=== PATIENT | female | born 1935 | race Caucasian/White ===

== ENCOUNTER 2019-11-30 07:46 | Outpatient (CLI) | payer OTHER, SELFPAY ==
--- NOTE | ~2019-11-30 | DEXA_ITS ---
Bone Density Report Name: Deysi Kaplan Age: 84 Sex: Female Ethnicity: White Date of : 1935 Indication: osteopenia; hysterectomy; Referring Provider: EUFEMIA DE LEON Study: Bone densitometry was performed. Exam Date: November 30, 2019 Accession number: [id number] There is hypertrophic degenerative change of the lumbar spine, which results in higher than expected spine bone mineral density measurements. These spine BMD and T score and Z score measurements are not reflective of the patient's true general bone mineral density. Bone Density: Region BMD T-score Z-score Classification AP Spine (L1, L3) 1.253 2.2 4.9 Normal Femoral Neck (Left) 0.665 -1.7 0.8 Osteopenia Total Hip (Left) 0.820 -1.0 1.2 Normal Total Hip Bilateral Avg 0.815 -1.1 1.2 Osteopenia Femoral Neck (Right) 0.659 -1.7 0.7 Osteopenia Total Hip (Right) 0.809 -1.1 1.1 Osteopenia World Health Organization criteria for BMD impression classify patients as: Normal (T-score at or above -1.0), Osteopenia (T-score between -1.0 and -2.5), or Osteoporosis (T-score at or below -2.5). 10-year Fracture Risk(1): Major Osteoporotic Fracture 14% Hip Fracture 4.0% Reported Risk Factors: [place] (), Neck BMD=0.659, BMI=27.1 (1) FRAX(R) Version 3.08. Fracture probability calculated for an untreated patient. Fracture probability may be lower if the patient has received treatment. Previous Exams: Region Exam Age BMD T-score BMD Change BMD Change Date g/cm2 vs Baseline vs Previous AP Spine(L1, L3) 11/30/2019 84 1.253 2.2 0.074(6.3%)* 0.074(6.3%)* 09/01/2017 82 1.178 1.5 Total Hip(Left) 11/30/2019 84 0.820 -1.0 0.031(4.0%)* 0.006(0.7%) 09/01/2017 82 0.814 -1.0 0.025(3.2%) 0.025(3.2%) 07/26/2014 78 0.789 -1.3 Total Hip(Right) 11/30/2019 84 0.809 -1.1 0.040(5.3%)* 0.024(3.0%) 09/01/2017 82 0.786 -1.3 0.017(2.2%) 0.017(2.2%) 07/26/2014 78 0.769 -1.4 *Denotes significance at 95% confidence level, LSC for AP Spine = 0.022 g/cm2, LSC for Total Hip = 0.027 g/cm2 Clinical Information Provided by Patient: Has used the following medications: Vitamin D Has the following medical conditions: Hysterectomy Patient maximum height was 62 Menopause Age: 45 No regular weight bearing exercise Drinks caffeinated beverages Onset of menses at age 15 Number of children 3 Impression: The patient has low bone mass, based on the Left Fem
== END 2019-11-30 07:47 | disposition home or self-care (01) ==
LOC: ANHIMG 07:49
PROVIDERS: PCP Emergency Medicine; Visit Provider Emergency Medicine
DX: Z78.0 Asymptomatic menopausal state (principal); M85.852 Other specified disorders of bone density and structure, left thigh; M85.851 Other specified disorders of bone density and structure, right thigh
CPT/HCPCS: 77080

== ENCOUNTER 2021-04-29 13:27 | Outpatient (CLI) | payer OTHER, SELFPAY ==
--- NOTE | ~2021-04-29 | CT_ITS ---
EXAMINATION: CT abdomen pelvis wo con DATE: 04/29/2021 13:51 INDICATION: Parastomal hernia check TECHNIQUE: Computed tomography (CT) of the abdomen and pelvis was performed without intravenous contr ast. Automated exposure control and iterative reconstruction technique were employed. The dose-length product was 551.71 mGy-cm. COMPARISON: 09/25/2007 FINDINGS: Minimal bibasilar atelectasis. Visualized inferior heart demonstrates atherosclerotic coronary artery calcifications and mitral annular calcification. No pericardial or pleural effusion. Liver, gallblad jeff, spleen, bilateral adrenal glands and kidneys are normal. Atrophy of the body and tail of the bar[place]. There are several [place] ventral hernias along a midline surgical scar, one at the level of the umbilicus partially containing a short segment of nonobstructed small bowel, the remaining conta ining fat. 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 Large parastomal hernia containing a long loop of nonobstructe d small bowel. The orifice of the hernia measures 3.0 x 3.0 cm. Bladder is normal. The uterus is not identified and has likely been surgically resected. No free intraperitoneal gas or fluid. No patholog ically enlarged abdominal or pelvic lymphadenopathy. Severe thoracolumbar spondylosis. IMPRESSION: 1. Status post subtotal colectomy with right lower quadrant end ileostomy with large parastomal herni a containing a long loop of nonobstructed small bowel. Reviewed, dictated and finalized at location B. IMPRESSION: 1. Status post subtotal colectomy with right lower quadrant end ileostomy with large parastomal hernia containing a long loop of nonobstructed small bowel.
== END 2021-04-29 13:28 | disposition home or self-care (01) ==
LOC: ANHIMG 13:28
PROVIDERS: PCP Emergency Medicine; Visit Provider Surgery
DX: K43.5 Parastomal hernia without obstruction or gangrene (principal)
CPT/HCPCS: 74176

== ENCOUNTER 2023-03-03 14:41 | Outpatient (CLI) | payer OTHER, SELFPAY ==
--- NOTE | ~2023-03-03 | DEXA_ITS ---
Bone Density Report Name: JENNIFER ANNA Age: 87 Sex: Female Ethnicity: White Date of : 1935 Indication: osteopenia; height loss; postmenopausal Referring Provider: EUFEMIA DE LEON Study: Bone densitometry was performed. Exam Date: March 03, 2023 Accession number: [id number] Bone Density: Region BMD T-score Z-score Classification AP Spine(L1-L4) 1.371 2.9 5.8 Normal Femoral Neck (Left) 0.650 -1.8 0.7 Osteopenia Total Hip (Left) 0.750 -1.6 0.8 Osteopenia Femoral Neck (Right) 0.643 -1.9 0.7 Osteopenia Total Hip (Right) 0.786 -1.3 1.1 Osteopenia Total Hip Mean 0.768 -1.5 1.0 Osteopenia World Health Organization criteria for BMD impression classify patients as: Normal (T-score at or above -1.0), Osteopenia (T-score between -1.0 and -2.5), or Osteoporosis (T-score at or below -2.5). 10-year Fracture Risk(1): Major Osteoporotic Fracture 15% Hip Fracture 4.4% Reported Risk Factors: [place] (), Neck BMD=0.643, BMI=27.1 (1) FRAX(R) Version 3.08. Fracture probability calculated for an untreated patient. Fracture probability may be lower if the patient has received treatment. Previous Exams: Region Exam Age BMD T-score BMD Change BMD Change Date g/cm2 vs Baseline vs Previous Total Hip(Left) 03/03/2023 87 0.750 -1.6 -0.064 (-7.9%) -0.070 (-8.6%) 11/30/2019 84 0.820 -1.0 0.006 (0.7%) 0.006 (0.7%) 09/01/2017 82 0.814 -1.0 Total Hip(Right) 03/03/2023 87 0.786 -1.3 0.001 (0.1%) -0.023 (-2.8%) 11/30/2019 84 0.809 -1.1 0.024 (3.0%) 0.024 (3.0%) 09/01/2017 82 0.786 -1.3 *Denotes significance at 95% confidence level, LSC for Total Hip = 0.027 g/cm2 Clinical Information Provided by Patient: Patient maximum height was 64 Menopause Age: 45 No regular weight bearing exercise Drinks caffeinated beverages Onset of menses at age 14 Number of children 3 Impression: The patient has low bone mass, based on the Right Femoral Neck T-score. The patient has an estimated ten-year risk of hip fracture of 4.4% and an estimated ten-year risk of major fracture of 15%, based on the WHO FRAX algorithm. The BMD for the Total Hip(Left) decreased, changing by -8.6% since the last DXA exam. Discussion: BONE DENSITY IS LOW AT ONE OR MORE SKELETAL SITES. THE PATIENT'S BMD AND CLINICAL RISK FACTORS CONTRIBUTE TO THIS PATIENT'S INCREASED RISK OF FRACTURE. This patient's lowest T-score is low at one or more skeletal sites. It meets
== END 2023-03-03 14:42 | disposition home or self-care (01) ==
PROVIDERS: PCP Emergency Medicine; Visit Provider Emergency Medicine
DX: Z78.0 Asymptomatic menopausal state (principal); M85.852 Other specified disorders of bone density and structure, left thigh; M85.851 Other specified disorders of bone density and structure, right thigh
CPT/HCPCS: 77080

== ENCOUNTER 2023-04-23 09:32 | Emergency (ER) | payer OTHER, SELFPAY ==
[2023-04-23] VITALS (10 sets, daily range): BP systolic 148–184; BP diastolic 68–110; PULSE 79–98; RESP 9–18; TEMP 36.4; O2SAT 92–100
--- NOTE | ~2023-04-23 | CT_ITS ---
EXAMINATION: CT abdomen pelvis w con DATE: 04/23/2023 10:48 INDICATION: Right upper quadrant abdominal pain. TECHNIQUE: Computed tomography (CT) of the abdomen and pelvis was performed with 100 mL Omnipaque 350 intravenous contrast. Automated exposure control and iterative reconstruction technique were employe d. The dose-length product was 334.68 mGy-cm. COMPARISON: CT abdomen and pelvis 04/29/2021 FINDINGS: The visualized portions of the lung bases demonstrate mild atelectasis. No pleural effusion . The heart size is normal. There are coronary artery calcifications. No pericardial effusion. The li doretha, gallbladder, pancreas, and adrenal glands are normal. Calcifications in the spleen are consisten t with old granulomatous disease. There is cortical thinning of the kidneys. There is a periumbilical ventral hernia containing nonobstructed small bowel. There is an end ileostomy in right abdomen with parastomal hernia containing nonobstructed small bowel. There is a supraumbilical ventral hernia con taining fat. Aortic atherosclerosis is noted. There are no pathologically enlarged lymph nodes. There is no free intraperitoneal fluid. There is severe thoracic and lumbar spondylosis. IMPRESSION: 1. Parastomal hernia containing nonobstructed small bowel. 2. Periumbilical ventral hernia containing nonobstructed small bowel. 3. Supraumbilical ventral hernia containing fat. Reviewed, dictated and finalized at location A.
[2023-04-23 09:59] LABS: Basophils Percent Auto 0.4 % (0.2-1.2); Eosinophils Absolute Auto 0.3 K/mm3 (0-0.3); Eosinophils Percent Auto 3.1 % (0-4.4); Hematocrit 36.7 % (37.0-47.0); Hemoglobin 11.8 g/dL (12.0-15.0); Immature Granulocyte Absolute 0.04 K/mm3 (0.00-0.031); Immature Granulocyte Percent A 0.5 % (0-0.5); Lymphocytes Absolute Auto 1.33 K/mm3 (0.9-3.2); Mean Corpuscular HGB Conc 32.2 g/dl (32-36); Mean Corpuscular Hemoglobin 28.9 pg (26-34); Mean Corpuscular Volume 89.7 fl (80-100); Mean Platelet Volume 9.1 fl (7.4-10.4); Monocytes Absolute Auto 0.7 K/mm3 (0.1-0.6); Monocytes Percent Auto 8.8 % (2.6-8.5); Neutrophils Absolute Auto 5.9 K/mm3 (1.3-6.7); Neutrophils Percent Auto 71.2 % (45.5-73.1); Platelet Count Result 287 k/mm3 (150-375); Red Blood Count 4.09 M/mm3 (4.2-5.4); Red Cell Distribution Width 13.6 % (11.5-14.5); White Blood Count 8.3 K/mm3 (4.5-10.0)
[2023-04-23 10:11] LABS: Alanine Aminotransferase 22 U/L (6-35); Albumin Level 4.3 g/dL (3.5-5.1); Alkaline Phosphatase 89 U/L (38-126); Anion Gap 5 mmol/L (8-16); Aspartate Amino Transferase 31 U/L (14-36); Bilirubin,Total 0.6 mg/dL (0.2-1.3); Blood Urea Nitrogen 15 mg/dL (7-17); Calcium 9.3 mg/dL (8.4-10.2); Carbon Dioxide 28 mmol/L (22-30); Chloride 96 mmol/L (98-107); Estimated CRCL calculation 23 ml/min; Estimated Glomerular Filt Rate 36; Glucose 155 mg/dL (65-110); Lipase 50 U/L (23-300); Potassium 4.3 mmol/L (3.4-5.0); Sodium 129 mmol/L (137-145)
--- NOTE | 2023-04-23 10:30 | ED.GENADULT ---
HPI - General Adult General Chief complaint: Abdominal Pain Stated complaint: abd pain Time Seen by Provider: 04/23/23 10:04 Source: patient Mode of arrival: ambulatory Limitations: no limitations History of Present Illness HPI narrative: This is an 87-year-old female who presents to the ED with chief complaint of generalized abdominal pain beginning earlier this morning. She states she woke up and started to have gradual onset of the pain. She states it is coming and going in waves. Reports it seems to be around her ostomy site which she has had for 15 years. Denies any skin changes. Denies any urinary problems. Related Data Home Medications Medication Instructions Recorded Confirmed aspirin 81 mg tablet,delayed 81 mg PO DAILY 09/13/19 04/19/23 release (Adult Low Dose Aspirin) cholecalciferol (vitamin D3) 125 125 mcg PO DAILY 09/13/19 04/19/23 mcg (5,000 unit) capsule omega-3 fatty acids 1,000 mg 1,000 mg PO DAILY 09/13/19 04/19/23 capsule (Fish Oil Concentrate) alendronate 70 mg tablet 70 mg PO WEEKLY 04/19/23 04/19/23 Allergies Allergy/AdvReac Type Severity Reaction Status Date / Time amoxicillin Allergy Unknown RASH Verified 04/23/23 09:48 atorvastatin Allergy Unknown Unknown Verified 04/23/23 09:48 iron Allergy Unknown NAUSEA Verified 04/23/23 09:48 Penicillins Allergy Unknown Unknown Verified 04/23/23 09:48 Zrgagta-DAP-SgC Reductase Allergy Unknown Unknown Verified 04/23/23 09:48 Inhibitor [Gpsrmdl-Mix-Gjv Reductase Inhibitor] Sulfa (Sulfonamide Allergy Unknown Unknown Verified 04/23/23 09:48 Antibiotics) Review of Systems Review of Systems: All systems as dictated in HPI [facility] Past Medical History Medical History Apneic spell Atherosclerosis of coronary artery of [place] heart without angina pectoris Cataract, bilateral Chronic fatigue, unspecified Chronic kidney disease, stage 4 (severe) THOMAS (dyspnea on exertion) Dyslipidemia Essential hypertension Hip pain, right History of cataract Hyperkalemia 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 Mixed hyperlipidemia Neuropathy Obstructive sleep apnea 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 Ulcerative colitis Vitamin D deficiency Wears hearing aid Surgical History Surgical History H/O total colectomy History of bilateral knee replacement History of cataract surgery Bilateral History of creation of ostomy History of hysterectomy Hx of heart artery stent Family History Family History Sibling Diabetes mellitus Family history of cardiovascular disease Family history of chronic obstructive pulmonary disease Father Acute myocardial infarction Mother Family history of dementia Other Family history of arthritis Social History Social History Smoking status: Never smoker Alcohol intake: never Lack of Transportation: No Lack of Food: Never True Current Housing: I Have Housing Concerned About Future Housing: No Difficulty Paying Gas/Electric Bills: No Difficulty Paying for Meds: No Currently Unemployed: No Education: High School Diploma/GED Living arrangements: with family Occupation/Education: retired Gender identity (if verbalized by the patient): Female Exam Narrative: GENERAL: Well-appearing, well-nourished, and in no acute distress. HEAD: Normocephalic, atraumatic. EYES: PERRLA and EOMI. ENT: Nares clear, no rhinorrhea or epistaxis. Mucous membranes moist. Oropharynx without tonsillar hypertrophy exudate or other lesions. NECK: Supple. No adenopathy or masses. CHEST: No respiratory distress. Clear to auscultation. No wheezes rales or rhonchi HEART: Regular rate and rhythm. No murmur heard. Normal peripheral
[2023-04-23 11:24] LABS: Appearance Urine Cloudy (Clear); Bacteria Urine None Seen /hpf; Bilirubin Urine Negative (Negative); Blood Urine Negative (Negative); Color Urine Yellow (Yellow); Glucose Urine UA Negative (Negative); Ketones Urine Negative (Negative); Leukocyte Esterase Ur 2+ LEU/UL (Negative); Nitrate Urine Negative (Negative); Non Pathogenic Casts 0-2; Protein Urine Negative (Negative); RBC Urine 0-2 /hpf (0-2); Specific Grav Ur 1.022 (1.001-1.035); Squamous Epithelial Cell Urine None seen /hpf (Few); Urobilinogen Urine 0.2 mg/dL (<2.0); WBC Urine 21-50 /hpf; pH Urine 6.5 (5.0-9.0)
[2023-04-23 11:32] LABS: Add Urine Microscopic? YES
== END 2023-04-23 13:00 | disposition home or self-care (01) ==
PROVIDERS: Emergency Medicine; Emergency Provider Physician Assistant; PCP Emergency Medicine
DX: K43.5 Parastomal hernia without obstruction or gangrene (principal); K43.9 Ventral hernia without obstruction or gangrene; I25.10 Atherosclerotic heart disease of native coronary artery without angina pectoris; E78.2 Mixed hyperlipidemia; E11.40 Type 2 diabetes mellitus with diabetic neuropathy, unspecified; E11.22 Type 2 diabetes mellitus with diabetic chronic kidney disease; N18.4 Chronic kidney disease, stage 4 (severe); I12.9 Hypertensive chronic kidney disease with stage 1 through stage 4 chronic kidney disease, or unspecified chronic kidney disease; K51.90 Ulcerative colitis, unspecified, without complications; E55.9 Vitamin D deficiency, unspecified; R53.82 Chronic fatigue, unspecified; Z93.2 Ileostomy status; Z95.5 Presence of coronary angioplasty implant and graft; Z90.49 Acquired absence of other specified parts of digestive tract; Z90.710 Acquired absence of both cervix and uterus; Z98.42 Cataract extraction status, left eye; Z98.41 Cataract extraction status, right eye; Z79.82 Long term (current) use of aspirin; Z79.84 Long term (current) use of oral hypoglycemic drugs
CPT/HCPCS: 36415; 74177; 80053; 81001; 83605; 83690; 85025; 87086; 87088; 99284; Q9967

== ENCOUNTER 2023-04-24 09:41 | Emergency (ER) | payer OTHER, SELFPAY ==
[2023-04-24] VITALS (49 sets, daily range): BP systolic 97–182; BP diastolic 55–162; PULSE 84–109; RESP 11–26; TEMP 36.7; O2SAT 89–100
--- NOTE | ~2023-04-24 | CT_ITS ---
EXAMINATION: CT abdomen pelvis wo con DATE: 04/24/2023 18:21 INDICATION: No stool output, abdominal distention, nausea and vomiting TECHNIQUE: Computed tomography (CT) of the abdomen and pelvis was performed without intravenous contr ast. The dose-length product (DLP) was 424.43 mGy-cm. Automated exposure control and iterative recons truction technique were employed. Oral contrast was also administered. COMPARISON: 04/23/2023 FINDINGS: Minimal dependent atelectasis is present in the lung bases. The heart size is normal. There is calcified coronary artery atherosclerosis. The liver, pancreas, and adrenal glands are normal. Th ere is vicarious excretion of contrast into the gallbladder. There is cortical thinning of the kidney s. Punctate calcifications in an otherwise normal spleen likely represent healed granulomatous diseas e. There are multiple mildly dilated loops of proximal small bowel. There is a periumbilical ventral hernia containing small bowel. There is an end ileostomy in the right lower quadrant containing multi ple fluid-filled loops of nondistended small bowel. No pathologically enlarged abdominal or pelvic ly mph nodes are identified. There is no free intraperitoneal gas. There is a supraumbilical hernia cont aining fat. There is severe thoracic and lumbar spondylosis. Contrast from yesterday's CT examinatio n opacifies the urinary bladder. IMPRESSION: 1. Multiple mildly dilated loops of proximal small bowel, ileus versus partial obstruction. 2. Peristomal hernia containing fluid-filled loops of nonobstructed small bowel. 3. Umbilical hernia containing nonobstructed small bowel. Reviewed, dictated and finalized at location F. IMPRESSION: 1. Multiple mildly dilated loops of proximal small bowel, ileus versus partial obstruction. 2. Peristomal hernia containing fluid-filled loops of nonobstructed small bowel . 3. Umbilical hernia containing nonobstructed small bowel.
--- NOTE | ~2023-04-24 | XR_ITS ---
EXAMINATION: XR chest 1V portable DATE: 04/24/2023 11:02 INDICATION: Vomiting. Dizziness. TECHNIQUE: A single frontal view of the chest was obtained. COMPARISON: Chest single view 09/26/2007, CT abdomen and pelvis 04/23/2023 FINDINGS: There is mild atelectasis at left lung base. No pleural effusion or pneumothorax. The heart size is normal. IMPRESSION: 1. Mild atelectasis at left lung base. Reviewed, dictated and finalized at location A.
--- NOTE | 2023-04-24 10:52 | ED.GENADULT ---
HPI - General Adult General Chief complaint: Dizziness Stated complaint: dizzy, n/v Time Seen by Provider: 04/24/23 10:36 Source: patient and family Limitations: no limitations History of Present Illness HPI narrative: Patient is an 87-year-old female present to the emergency department for nausea and vomiting. Patient states that she was in the emergency department yesterday after she had an acute episode of abdominal pain near her stoma site that she had present for 15 years and is progressively got better does admit to having imaging done and she went home and has been taking Tylenol and otherwise doing well until last night when she had an episode of nonbloody nonbilious emesis and then this morning she again had another episode of nonbloody nonbilious emesis. Patient admits to feeling mildly dehydrated. Patient denies any significant abdominal pain noting that overall feels well controlled. Patient does admit to mild abdominal distention over the past couple days. Patient notes that she plans to follow-up with the general surgeon and call her office tomorrow but she was told to come back if she is not able to tolerate anything by mouth which she has not been able to since leaving the ED. Patient denies chest pain, shortness of breath, dysuria, hematuria, urinary frequency, urinary urgency, shortness of breath, rash, recent injuries, recent illness, numbness, weakness, sore throat, cough. Patient does admit to some generalized fatigue. Patient admits to occasional suppository use with stool output but does not typically defecate from the anus. Related Data Home Medications Medication Instructions Recorded Confirmed aspirin 81 mg tablet,delayed 81 mg PO DAILY 09/13/19 04/19/23 release (Adult Low Dose Aspirin) cholecalciferol (vitamin D3) 125 125 mcg PO DAILY 09/13/19 04/19/23 mcg (5,000 unit) capsule omega-3 fatty acids 1,000 mg 1,000 mg PO DAILY 09/13/19 04/19/23 capsule (Fish Oil Concentrate) alendronate 70 mg tablet 70 mg PO WEEKLY 04/19/23 04/19/23 Allergies Allergy/AdvReac Type Severity Reaction Status Date / Time amoxicillin Allergy Unknown RASH Verified 04/23/23 09:48 atorvastatin Allergy Unknown Unknown Verified 04/23/23 09:48 iron Allergy Unknown NAUSEA Verified 04/23/23 09:48 Penicillins Allergy Unknown Unknown Verified 04/23/23 09:48 Edexxxg-DBE-JsE Reductase Allergy Unknown Unknown Verified 04/23/23 09:48 Inhibitor [Zhbhlhv-Gqv-Fkh Reductase Inhibitor] Sulfa (Sulfonamide Allergy Unknown Unknown Verified 04/23/23 09:48 Antibiotics) [facility] Past Medical History Medical History Apneic spell Atherosclerosis of coronary artery of [place] heart without angina pectoris Cataract, bilateral Chronic fatigue, unspecified Chronic kidney disease, stage 4 (severe) THOMAS (dyspnea on exertion) Dyslipidemia Essential hypertension Hip pain, right History of cataract Hyperkalemia 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 Mixed hyperlipidemia Neuropathy Obstructive sleep apnea 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 Ulcerative colitis Vitamin D deficiency Wears hearing aid Surgical History Surgical History H/O total colectomy History of bilateral knee replacement History of cataract surgery Bilateral History of creation of ostomy History of hysterectomy Hx of heart artery stent Family History Family History Sibling Diabetes mellitus Family history of cardiovascular disease Family history of chronic obstructive pulmonary disease Father Acute myocardial infarction Mother Family history of dementia Other Family history of arthritis Social History Social History Smoking status: Never smoker Alcohol intake: never Lack o
--- NOTE | 2023-04-24 10:56 | ECG_ITS ---
Measurements Intervals [place] Rate: 93 P: 13 MD: 143 QRS: 18 QRSD: 76 T: 58 QT: 333 QTc: 414 Interpretive Statements SINUS RHYTHM WITHIN NORMAL LIMITS COMPARED TO ECG 04/24/2023 16:22:30 NO SIGNIFICANT CHANGE Electronically Signed On 04-25-2023 7:29:16 CDT by Liam Vogt M.D.
[2023-04-24] MEDS: LACTATED RINGERS 1,000 ML 999 ML IV CONT (11:10)
[2023-04-24] MEDS: ONDANSETRON INJ 4 MG/2 ML VIAL IV PUSH (11:10)
[2023-04-24 11:16] LABS: Basophils Percent Auto 0.2 % (0.2-1.2); Eosinophils Percent Auto 0.3 % (0-4.4); Hematocrit 38.4 % (37.0-47.0); Hemoglobin 12.2 g/dL (12.0-15.0); Immature Granulocyte Absolute 0.08 K/mm3 (0.00-0.031); Immature Granulocyte Percent A 0.5 % (0-0.5); Lymphocytes Absolute Auto 0.57 K/mm3 (0.9-3.2); Lymphocytes Percent Auto 3.7 % (18.3-44.2); Mean Corpuscular HGB Conc 31.8 g/dl (32-36); Mean Corpuscular Hemoglobin 28.5 pg (26-34); Mean Corpuscular Volume 89.7 fl (80-100); Mean Platelet Volume 9.4 fl (7.4-10.4); Monocytes Absolute Auto 0.7 K/mm3 (0.1-0.6); Monocytes Percent Auto 4.3 % (2.6-8.5); Platelet Count Result 324 k/mm3 (150-375); Red Blood Count 4.28 M/mm3 (4.2-5.4); Red Cell Distribution Width 13.9 % (11.5-14.5); White Blood Count 15.4 K/mm3 (4.5-10.0)
[2023-04-24 11:27] LABS: Alanine Aminotransferase 21 U/L (6-35); Albumin Level 4.1 g/dL (3.5-5.1); Alkaline Phosphatase 88 U/L (38-126); Anion Gap 6 mmol/L (8-16); Aspartate Amino Transferase 32 U/L (14-36); Bilirubin,Total 0.8 mg/dL (0.2-1.3); Blood Urea Nitrogen 19 mg/dL (7-17); Calcium 9.5 mg/dL (8.4-10.2); Carbon Dioxide 28 mmol/L (22-30); Chloride 93 mmol/L (98-107); Estimated CRCL calculation 18 ml/min; Estimated Glomerular Filt Rate 31; Glucose 218 mg/dL (65-110); Lipase 63 U/L (23-300); Potassium 4.3 mmol/L (3.4-5.0); Sodium 127 mmol/L (137-145)
[2023-04-24 11:38] LABS: Troponin I < 0.012 ng/mL (0.000-0.034)
[2023-04-24 16:28] LABS: Lactic Acid Reflex 0.9 mmol/L (0.7-2.0)
--- NOTE | 2023-04-24 16:50 | PC.NURSE ---
spoke with [facility]. hopes they will have bed available soon since pt isnt going to highly specialized unit.
--- NOTE | 2023-04-24 18:33 | PC.NURSE ---
bed assignment received from [facility] [id number] bed 2. called to give report and staff states they cant take report cause they havent assigned a nurse to that pt yet. radha given our phone number to call us back to get report.
--- NOTE | 2023-04-24 19:22 | PC.NURSE ---
attempt to again call report unsuccessful. states nurses are in report. was told they have our number and will call us back .
== END 2023-04-24 20:30 | disposition short-term general hospital (02) ==
PROVIDERS: Emergency Provider Student in an Organized Health Care Education/Training Program; PCP Emergency Medicine
DX: K43.5 Parastomal hernia without obstruction or gangrene (principal); R11.2 Nausea with vomiting, unspecified; K59.00 Constipation, unspecified; I25.10 Atherosclerotic heart disease of native coronary artery without angina pectoris; E78.2 Mixed hyperlipidemia; E11.40 Type 2 diabetes mellitus with diabetic neuropathy, unspecified; E11.22 Type 2 diabetes mellitus with diabetic chronic kidney disease; N18.4 Chronic kidney disease, stage 4 (severe); I12.9 Hypertensive chronic kidney disease with stage 1 through stage 4 chronic kidney disease, or unspecified chronic kidney disease; K51.90 Ulcerative colitis, unspecified, without complications; E55.9 Vitamin D deficiency, unspecified; R53.82 Chronic fatigue, unspecified; Z93.2 Ileostomy status; Z95.5 Presence of coronary angioplasty implant and graft; Z96.653 Presence of artificial knee joint, bilateral; Z90.49 Acquired absence of other specified parts of digestive tract; Z90.710 Acquired absence of both cervix and uterus; Z98.42 Cataract extraction status, left eye; Z98.41 Cataract extraction status, right eye; Z79.84 Long term (current) use of oral hypoglycemic drugs; Z79.82 Long term (current) use of aspirin; K42.9 Umbilical hernia without obstruction or gangrene; R93.3 Abnormal findings on diagnostic imaging of other parts of digestive tract
CPT/HCPCS: 36415; 71045; 74176; 80053; 83605; 83690; 84484; 85025; 93005; 96361; 96374; 99285; J2405; J7120

== ENCOUNTER 2023-05-07 12:58 | Emergency (ER) | payer OTHER, SELFPAY ==
[2023-05-07] VITALS (12 sets, daily range): BP systolic 134–160; BP diastolic 62–81; PULSE 82–103; RESP 14–26; TEMP 36.8; O2SAT 95–100
--- NOTE | ~2023-05-07 | XR_ITS ---
EXAMINATION: XR chest 2V DATE: 05/07/2023 13:56 INDICATION: Irregular heart rhythm TECHNIQUE: Frontal and lateral views of the chest are obtained COMPARISON: 04/24/2023 FINDINGS: There are minimal airspace opacities of the right middle lobe. No pleural effusion or pneum othorax. The cardiomediastinal silhouette is normal. There is moderate thoracic spondylosis. IMPRESSION: 1. Minimal airspace opacities of the right middle lobe, consistent with atelectasis versus pneumonia. Reviewed, dictated and finalized at location A. IMPRESSION: 1. Minimal airspace opacities of the right middle lobe, consistent with atelect asis versus pneumonia.
--- NOTE | 2023-05-07 13:06 | ECG_ITS ---
Measurements Intervals [place] Rate: 86 P: -37 HI: 143 QRS: -11 QRSD: 70 T: 32 QT: 332 QTc: 399 Interpretive Statements SINUS RHYTHM LOW QRS VOLTAGE IN PRECORDIAL LEADS CONSIDER INFERIOR INFARCT, AGE INDETERMINATE ABNORMAL ECG COMPARED TO ECG 04/24/2023 16:36:20 NO SIGNIFICANT CHANGES Electronically Signed On 05-07-2023 15:53:00 CDT by Rene Macias D.O.
[2023-05-07 13:43] LABS: Basophils Absolute Auto 0.1 K/mm3 (0.0-0.1); Basophils Percent Auto 0.4 % (0.2-1.2); Eosinophils Absolute Auto 0.3 K/mm3 (0-0.3); Eosinophils Percent Auto 2.5 % (0-4.4); Hematocrit 31.8 % (37.0-47.0); Immature Granulocyte Absolute 0.09 K/mm3 (0.00-0.031); Immature Granulocyte Percent A 0.7 % (0-0.5); Lymphocytes Percent Auto 12.4 % (18.3-44.2); Mean Corpuscular HGB Conc 31.4 g/dl (32-36); Mean Corpuscular Volume 92.2 fl (80-100); Monocytes Absolute Auto 1.1 K/mm3 (0.1-0.6); Monocytes Percent Auto 9.1 % (2.6-8.5); Neutrophils Percent Auto 74.9 % (45.5-73.1); Platelet Count Result 431 k/mm3 (150-375); Red Blood Count 3.45 M/mm3 (4.2-5.4); Red Cell Distribution Width 14.5 % (11.5-14.5); White Blood Count 12.1 K/mm3 (4.5-10.0)
[2023-05-07 13:55] LABS: Prothrombin Time 13.4 Seconds (11.1-14.7)
[2023-05-07 13:56] LABS: Partial Thromboplastin Time 27.5 SECONDS (22.3-36.8)
[2023-05-07 13:57] LABS: Alanine Aminotransferase 26 U/L (6-35); Alkaline Phosphatase 96 U/L (38-126); Anion Gap 10 mmol/L (8-16); Aspartate Amino Transferase 34 U/L (14-36); Bilirubin,Total 0.6 mg/dL (0.2-1.3); Blood Urea Nitrogen 17 mg/dL (7-17); Calcium 9.2 mg/dL (8.4-10.2); Carbon Dioxide 30 mmol/L (22-30); Chloride 95 mmol/L (98-107); Estimated CRCL calculation 20 ml/min; Estimated Glomerular Filt Rate 31; Glucose 171 mg/dL (65-110); Lipase 50 U/L (23-300); Sodium 135 mmol/L (137-145)
[2023-05-07 14:09] LABS: Troponin I < 0.012 ng/mL (0.000-0.034)
--- NOTE | 2023-05-07 14:29 | ED.ARRPALP ---
HPI - Arrhythmia/Palpitations General Chief Complaint: Arrhythmia/Palpitations Stated Complaint: ?A FIB EPISODE Time Seen by Provider: 05/07/23 14:20 History of Present Illness HPI narrative: Patient is an 87-year-old female with history of UC s/p colectomy with ileostomy placement 15 years ago, here with possible arrhythmia. Patient states last week she was hospitalized at [place] for a parastomal hernia with obstruction. She states that she had a laparoscopic repair and has been doing well since. She notes that while she was in the hospital she had 2 episodes of palpitations which they diagnosed as AFib. She did not go home on any new medications at that time. She has been healing well with good stoma output and decreasing abdominal distention. Today she had a visiting nurse come to her house and they noted that her heart rate was around 100 and advised that she should probably come to the emergency department for evaluation of possible AFib. She denies any symptoms at that time. No current chest pain, palpitations, shortness of breath. 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 She is on a daily aspirin, no anticoagulation at this time. No prior history of known Afib prior to this recent hospitalization. Related Data Home Medications Medication Instructions Recorded Confirmed aspirin 81 mg tablet,delayed 81 mg PO DAILY 09/13/19 04/19/23 release (Adult Low Dose Aspirin) cholecalciferol (vitamin D3) 125 125 mcg PO DAILY 09/13/19 04/19/23 mcg (5,000 unit) capsule omega-3 fatty acids 1,000 mg 1,000 mg PO DAILY 09/13/19 04/19/23 capsule (Fish Oil Concentrate) alendronate 70 mg tablet 70 mg PO WEEKLY 04/19/23 04/19/23 Allergies Allergy/AdvReac Type Severity Reaction Status Date / Time amoxicillin Allergy Unknown RASH Verified 05/07/23 14:22 atorvastatin Allergy Unknown Unknown Verified 05/07/23 14:22 iron Allergy Unknown NAUSEA Verified 05/07/23 14:22 Penicillins Allergy Unknown Unknown Verified 05/07/23 14:22 Iwckuvy-FWW-JyQ Reductase Allergy Unknown Unknown Verified 05/07/23 14:22 Inhibitor [Wjzzdhz-Cja-Cnr Reductase Inhibitor] Sulfa (Sulfonamide Allergy Unknown Unknown Verified 05/07/23 14:22 Antibiotics) Review of Systems Review of Systems: CONSTITUTIONAL: Denies fever, chills, or sweats. ENT: Denies rhinorrhea, congestion, sore throat, or otalgia. CARDIOVASCULAR: Denies chest pain, palpitations, or edema. RESPIRATORY: Denies cough or dyspnea. GASTROINTESTINAL: Denies abdominal pain, nausea, vomiting, or diarrhea. GENITOURINARY: Denies dysuria or hematuria. SKIN: Denies rash or itching. MUSCULOSKELETAL: Denies back pain, joint pain, or myalgia. NEUROLOGIC: Denies headache, numbness, or weakness. PSYCHIATRIC: Denies anxiety or depression. 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
[2023-05-07 15:21] LABS: Magnesium 1.7 mg/dL (1.6-2.3)
[2023-05-07] MEDS: MAGNESIUM OXIDE 400 MG TABLET PO (16:35)
== END 2023-05-07 16:39 | disposition home or self-care (01) ==
PROVIDERS: Emergency Medicine; Emergency Provider Student in an Organized Health Care Education/Training Program; PCP Emergency Medicine
DX: R00.2 Palpitations (principal); I25.10 Atherosclerotic heart disease of native coronary artery without angina pectoris; I10 Essential (primary) hypertension; K51.90 Ulcerative colitis, unspecified, without complications; E78.2 Mixed hyperlipidemia; E11.40 Type 2 diabetes mellitus with diabetic neuropathy, unspecified; E55.9 Vitamin D deficiency, unspecified; R53.82 Chronic fatigue, unspecified; G47.33 Obstructive sleep apnea (adult) (pediatric); Z93.2 Ileostomy status; Z90.49 Acquired absence of other specified parts of digestive tract; Z96.653 Presence of artificial knee joint, bilateral; Z95.5 Presence of coronary angioplasty implant and graft; Z90.710 Acquired absence of both cervix and uterus; Z79.82 Long term (current) use of aspirin; Z79.84 Long term (current) use of oral hypoglycemic drugs; R94.31 Abnormal electrocardiogram [ECG] [EKG]
CPT/HCPCS: 36415; 71046; 80053; 83690; 83735; 84484; 85025; 85610; 85730; 93005; 99284; A9270

== ENCOUNTER 2024-11-27 09:52 | Outpatient (CLI) | payer OTHER, SELFPAY ==
[2024-11-27 11:08] LABS: Add Urine Microscopic? YES; Appearance Urine Turbid (Clear); Bacteria Urine 4+ /hpf; Bilirubin Urine Negative (Negative); Blood Urine 2+ (Negative); Color Urine Yellow (Yellow); Glucose Urine UA Negative (Negative); Ketones Urine Negative (Negative); Leukocyte Esterase Ur 3+ LEU/UL (Negative); Need Manual Microscopic Reviewed; Nitrate Urine Positive (Negative); Non Pathogenic Casts 0-2; Protein Urine 1+ mg/dL (Negative); RBC Urine 0-2 /hpf (0-2); Specific Grav Ur 1.011 (1.001-1.035); Squamous Epithelial Cell Urine Few /hpf (Few); Urobilinogen Urine 0.2 mg/dL (<2.0); WBC Urine >100 /hpf (0-3); pH Urine 5.5 (5.0-9.0)
--- OUTSIDE RECORDS SUMMARY | 2024-11-27 11:18 | XMS_ITS | Referral Summary ---
Author Organization [facility] Address [address] [place] [address] Care Team Providers Care Nuclear Cardiology Technologist Name Role Phone Liam Mcbride MD Primary Care Provide r Sourav Crabtree MD Unavailable [phone] Woody Phipps MD Unavailable [phone] Encounters Date Type Department Care Team Description 11/13/2024 7:15 AM CDT Lab [facility] [address] [place] [address] 09/07/2024 7:35 AM CARDIAC SPECIALIST Lab [facility] [address] [place] [address] from Last 3 Months Allergies Active Allergy Reactions Criticality Noted Date Comments Amoxicillin Rash Reaction: Rash, Ciprofloxacin Dizziness Low 04/24/2023 Lisinopril Other (See comments) Reaction: Hyperkalemia?, Penicillins Sulfa (Sulfonamide Antibiotics) Medications mesalamine (CANASA) 1,000 mg suppository Take as directed 0 0 9 Active aspirin 81 mg tablet take 1 tablet (81MG) by oral route every day 0 0 Active calcium carbonate (TUMS) 750 mg (300 mg of elemental calcium) tablet,chewable take as directed 0 1 Active gabapentin (NEURONTIN) 300 mg capsule take 1 Capsule by oral route every day 0 0 08/02/201 3 Active glipiZIDE (GLUCOTROL) 10 mg tablet Take 1 tablet (10 mg total) by mouth 2 (two) times a day before breakfast and lunch 1 Active atorvastatin (LIPITOR) 40 mg tablet Take 1 tablet (40 mg total) by mouth daily 1 Active losartan (COZAAR) 25 mg tablet Take 0.5 tablets (12.5 mg total) by mouth daily 9 Active Ultra Thin Lancets 30 gauge misc TEST ONCE DAILY DIRECTED 1 Active Contour Test Strips strip TEST BLOOD SUGARS ONCE DAILY 1 Active fish oil-dha-epa 1,200-144-216 mg capsule Take 1 capsule by mouth 2 (two) times a day Active semaglutide (Rybelsus) 7 mg tablet Take 1 tablet (7 mg total) by mouth daily Active alendronate (FOSAMAX) 70 mg tabletIndications :Post-Menopausal Osteoporosis Take 1 tablet (70 mg total) by mouth every 7 days 3 Active metoprolol XL (TOPROL-XL) 25 mg extended release tablet Take 1 tablet (25 mg total) by mouth daily 3 Active fluconazole (DIFLUCAN) 150 mg tablet 4 Active clindamycin (CLEOCIN) 300 mg capsule Take by mouth 3 (three) times a day Active vitamin D3-vitamin K2 25 mcg (1,000 unit)-90 mcg tablet,disintegra ting Take by mouth Active Active Problems Problem Noted Date Diagnosed Date Obstruction of bowel 04/24/2023 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 12/30/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 Overview (12/09/2016): STATUS-POST PTCA Old myocardial infarction 01/19/2014 Overview (12/09/2016): OLD MYOCARDIAL INFARCT 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 01/19 Overview (12/09/2016): CRNRY ATHRSCL NATVE VSSL Hypertension 01/19/2014 Overview (12/11/2016): HYPERTENSION NOS Social History Tobacco Use Types Packs/Day Years Used Date Smoking Tobacco: Never Smokeless Tobacco: Never Tobacco Cessation:Counseling Given: Not Answered Alcohol Use Standard Drinks/Week Comments No 0 (1 standard drink = 0.6 oz pur e alcohol) OASIS D0700: Social Isolation Answer Da te Recorded Frequency of experiencing loneliness or isolatio n Never 05/23/2023 OASIS A1250: Transportation Answer Date Recorded Lack of Transportation (Medical) No 05/23/2023 Lack of Transportation (Non-Medical) No 05/23/2023 Patient Unable or Declines to Respond No 05/23/2023 OASIS B1300: Health Literacy Answer Ihsan e Recorded Frequency of needing help to read materials from doctor or pharmacy Never 05/23/2023 Personal Safety Answer Date Recorded Have you ever been in or are you currently in a harmful physical or emotional relationship or is someone making you feel afraid or unsafe? Denies 04/24/2023 Comments No Sex and Gender Information Value Date Recorded Sex Assigned at Not on file Legal Sex Female 10:00 AM CARDIAC SPECIALIST Gender Identity Not on file Sexual Orientation Not on file Last Filed Vital Signs Vital Sign Reading Time Taken Comments Blood Pressure 133/69 01/06/2024 11:05 AM CDT Pulse 71 01/06/2024 11:05 AM CDT Temperature 36.2 C (97.2 F) 01/06/2024 11:05 AM CDT Respiratory Rate 16 01/06/2024 11:05 AM CDT Oxygen Saturation 99% 01/06/2024 11:05 AM CDT Inhaled Oxygen Concentration - - Weight 64 kg (141 lb) 01/06/2024 11:05 AM CDT Height 152.5 cm (5' 0.05 ) 01/06/2024 11:05 AM C DT Body Mass Index 27.49 01/06/2024 11:05 AM CDT Plan of Treatment Not on file Procedures Procedure Name Priority Date/Time Associated Diagnosis Comments PROTEIN / CREATININE RATIO, URINE, RANDOM Routine 11/13/2024 7:39 AM CDT EGFR Routine 11/13/2024 7:28 AM CDT RENAL FUNCTION PANEL Routine 11/13/2024 7:28 AM CDT CBC WITHOUT DIFFERENTIAL Routine 11/13/2024 7:28 AM CDT PTH Routine 11/13/2024 7:28 AM CDT ALBUMIN CREATININE RATIO, URINE Routine 09/07/2024 8:31 AM CARDIAC SPECIALIST EGFR Routine 09/07/2024 7:55 AM CARDIAC SPECIALIST LIPID PANEL Routine 09/07/2024 7:55 AM CARDIAC SPECIALIST COMPREHENSIVE METABOLIC PANEL Routine 09/07/2024 7:55 AM CARDIAC SPECIALIST HEMOGLOBIN A1C Routine 09/07/2024 7:55 AM CARDIAC SPECIALIST VITAMIN D 25 HYDROXY Routine 09/07/2024 7:55 AM CARDIAC SPECIALIST from Last 3 Months Results * (ABNORMAL) Protein / creatinine ratio, urine, random (11/13/2024 7:39 AM CDT) Protein, ur, quant 60.0 mg/dL Comment: Interpretive Data No reference range established. Current interpretive data was last revised 2019. Testing performed by: [address] [address] Creatinine Ur 98.1 mg/dL LATA Comment: Interpretive Data No reference range established. Current interpretive data was last revised 2019. Testing performed by: [address] [address] Protein/creatinin e ratio 611.6(H) 0.0 - 180.0 mg/g CR LATA Comment:Testing performed by : [address] [address] Urine 11/13/2024 7:39 AM CDT 11/13/2024 9:15 AM CDT Tony Winston MD LAB URINE ORDERABLES Final R esult Performing Organization Address [facility] de Phone Number LATA [facility]0 [facility] [place] [address] * (ABNORMAL) eGFR (11/13/2024 7:28 AM CDT) eGFR 36(L) >=60 mL/min/1. 73 m2 Comment: Interpretive Data Reference Interval Normal >/= 90 mL/min/1.73m2 Mildly decreased* 60 - 89 mL/min/1.73m2 Mildly to moderately decreased 45 - 59 mL/min/1.73m2 Moderately to severely decreased 30 - 44 mL/min/1.73m2 Severely decreased 15 - 29 mL/min/1.73m2 Kidney Failure < 15 mL/min/1.73m2 *Relative to young adult level Estimated glomerular filtration rate is determined by the 2020 CKD-EPI equation recommended by the National Kidney Foundation (A Unifying Approach to GFR Estimation: Recommendations of the NKF-ASK Task Force on Reassessing the Inclusion of Race in Diagnosing Kidney Disease, JASN 2020). The CKD-EPI equation should not be used for patients with unstable renal function and has not been validated in children and those over 70. Current interpretive data was last reviewed 2021. Testing performed by: [address] [address] Blood 11/13/2024 7:28 AM CDT 11/13/2024 7:47 AM CDT Tony Winston MD LAB BLOOD ORDERABLES Final R esult Performing Organization Address [facility] Co de Phone Number LATA [address] [facility] [place] [address] * (ABNORMAL) CBC without differential (11/13/2024 7:28 AM CDT) Pathologist [facility] WBC 8.7 3.8 - 9.9 K/cumm Comment:Testing performed by : [address] [address] Hgb 10.5(L) 11.9 - 15.5 g/dL LATA Comment:Testing performed by : [address] [address] Hct 33.0(L) 35.6 - 45.5 % LATA Comment:Testing performed by : [address] [address] Plt 349 150 - 400 K/cumm LATA Comment:Testing performed by : [address] [address] MPV 9.2 9.1 - 12.3 fL LATA Comment:Testing performed by : [address], [address] RBC 3.74(L) 3.90 - 5.20 M/cumm LATA Comment:Testing performed by : [address], [address] MCV 88.2 81.3 - 96.4 fL LATA Comment:Testing performed by : [address], [address] MCH 28.1 27.1 - 33.3 pg LATA Comment:Testing performed by : [address], [address] MCHC 31.8(L) 32.3 - 35.7 g/dL LATA Comment:Testing performed by : [address], [address] RDW CV 13.4 11.1 - 14.9 % LATA Comment:Testing performed by : [address], [address] RDW SD 43.3 35.7 - 48.1 fL LATA Comment:Testing performed by : [address] [address] NRBC abs 0.00 0.00 - 0.01 K/cumm LATA Comment:Testing performed by : [address], [address] Blood 11/13/2024 7:28 AM CDT 11/13/2024 7:47 AM CDT Tony Winston MD LAB BLOOD ORDERABLES Final R esult Performing Organization Address City/[facility] Co de Phone Number LATA [address] [place] [address] * PTH (11/13/2024 7:28 AM CDT) [facility] PTH 30 15 - 65 pg/mL Comment:Testing performed by : [address] [address] Blood 11/13/2024 7:28 AM CDT 11/13/2024 7:47 AM CDT Tony Winston MD LAB BLOOD ORDERABLES Final R esult Performing Organization Address [facility] Co de Phone Number LATA [address] [address] * (ABNORMAL) Renal function panel (11/13/2024 7:28 AM CDT) [facility] Sodium 133(L) 135 - 145 mmol/L Comment:Testing performed by : [address] [address] Potassium, pl 4.5 3.3 - 4.9 mmol/L LATA Comment:Testing performed by : [address] [address] Chloride 98 97 - 110 mmol/L LATA Comment:Testing performed by : [address] [address] CO2 25 22 - 32 mmol/L LATA Comment:Testing performed by : [address] [address] Anion gap 10 2 - 15 mmol/L LATA Comment:Testing performed by : [address] [address] BUN 17 6 - 25 mg/dL LATA Comment:Testing performed by : [address] [address] Creatinine 1.40(H) 0.60 - 1.10 mg/dL LATA Comment:Testing performed by : [address] [place]., [address] Glucose 141 70 - 199 mg/dL LATA Comment: Interpretive Data Fasting glucose >/= 126 mg/dl is diagnostic for diabetes. Fasting is defined as no caloric intake for at least 8 hours. Fasting glucose between 100 mg/dl to 125 mg/dl is diagnostic of prediabetes. In a patient with classic symptoms of hyperglycemia or hyperglycemic crisis, a random glucose >/= 200 mg/dl is diagnostic for diabetes. In the absence of unequivocal hyperglycemia, results should be confirmed by repeat testing. The classification and Diagnosis of Diabetes Diabetes Care 202; 46: S19-S40. Current interpretive data was last revised 2022. Testing performed by: [address] [address] Calcium 10.3 8.5 - 10.3 mg/dL LATA Comment:Testing performed by : [address] [address] Phosphorus, pl 3.9 2.3 - 4.5 mg/dL LATA Comment:Testing performed by : [address] [address] Albumin 4.0 3.5 - 5.0 g/dL LATA Comment:Testing performed by : [address] [address] Blood 11/13/2024 7:28 AM CDT 11/13/2024 7:47 AM CDT Tony Winston MD LAB BLOOD ORDERABLES Final R esult LATA [address] [facility] Department of Laboratories [place], [place] [id number] * (ABNORMAL) Albumin Creatinine Ratio, Urine (09/07/2024 8:31 AM CARDIAC SPECIALIST) Albumin Ur 24.3 mg/L Comment: Interpretive Data No reference range established. Current interpretive data was last revised 2019. Testing performed by: [address] [address] Creatinine Ur 63.9 mg/dL LATA Comment: Interpretive Data No reference range established. Current interpretive data was last revised 2019. Testing performed by: [address] [address] Albumin Creatinine Ratio, Ur 38(H) 1 - 29 mg/g LATA IBARRA Comment:Testing performed by : [facility], [address] [place] [address]., [address] Urine 09/07/2024 8:31 AM CARDIAC SPECIALIST 09/07/2024 8:52 AM CARDIAC SPECIALIST us Liam Mcbride MD LAB URINE ORDERABLES Final Result LATA [address] [facility] Department [place] [address] * (ABNORMAL) eGFR (09/07/2024 7:55 AM CARDIAC SPECIALIST) eGFR 34(L) >=60 mL/min/1. 73 m2 Comment: Interpretive Data Reference Interval Normal >/= 90 mL/min/1.73m2 Mildly decreased* 60 - 89 mL/min/1.73m2 Mildly to moderately decreased 45 - 59 mL/min/1.73m2 Moderately to severely decreased 30 - 44 mL/min/1.73m2 Severely decreased 15 - 29 mL/min/1.73m2 Kidney Failure < 15 mL/min/1.73m2 *Relative to young adult level Estimated glomerular filtration rate is determined by the 2020 CKD-EPI equation recommended by the National Kidney Foundation (A Unifying Approach to GFR Estimation: Recommendations of the NKF-ASK Task Force on Reassessing the Inclusion of Race in Diagnosing Kidney Disease, JASN 2020). The CKD-EPI equation should not be used for patients with unstable renal function and has not been validated in children and those over 70. Current interpretive data was last reviewed 2021. Testing performed by: [facility], [address] [place] [address]., [address] Blood 09/07/2024 7:55 AM CARDIAC SPECIALIST 09/07/2024 7:59 AM CARDIAC SPECIALIST us Liam Mcbride MD LAB BLOOD ORDERABLES Final Result Performing Organization Address City/[facility] Co de Phone Number LATA [address] [place] [address] * Vitamin D 25 hydroxy (09/07/2024 7:55 AM CARDIAC SPECIALIST) [facility] Vitamin D 25-OH 77.0 30.0 - 80.0 ng/mL Blood 09/07/2024 7:55 AM CARDIAC SPECIALIST 09/07/2024 10:36 AM CARDIAC SPECIALIST Liam Mcbride MD LAB BLOOD ORDERABLES Final Result Performing Organization Address [facility] de Phone Number N[address] [address] * (ABNORMAL) Hemoglobin A1c (09/07/2024 7:55 AM CARDIAC SPECIALIST) [facility] Hgb A1C 8.2(H) 4.0 - 5.6 % Comment:Testing performed by : [facility], [address] [place] [address]., [address] Estimated Average Glucose 189 mg/dL LATA Comment: The ADA recommends reporting an estimated Average Glucose (eAG) with all Hemoglobin A1c results using the equation derived from a study of 507 normal and diabetic adults. Minority populations were underrepresented and children were not included. (Diabetes Care 31:2138-7444, 2008). The eAG is not equivalent to a fasting glucose. Testing performed by: [address] [address] Blood 09/07/2024 7:55 AM CARDIAC SPECIALIST 09/07/2024 7:59 AM CARDIAC SPECIALIST Liam Mcbride MD LAB BLOOD ORDERABLES Final Result Performing Organization Address City/[facility] de Phone Number LATA [address] [facility] [place] [address] * Lipid panel (09/07/2024 7:55 AM CARDIAC SPECIALIST) [facility] Cholesterol 119 30 - 199 mg/dL Comment: Interpretive Data Ages < or = 19 years Acceptable: <170 mg/dL Borderline high: 170-199 mg/dL High: >or= 200 mg/dL Ages > or = 20 years Desirable: <200 mg/dL Borderline high: 200-239 mg/dL High: >or= 240 mg/dL Literature References: 1. Expert Panel on Integrated Guidelines for Cardiovascular Health and Risk Reduction in Children and Adolescents. Pediatrics 2011;128:S213 2. NCEP Expert Panel. Circulation 2004;110:227 Current Interpretive Data was last revised on 2018. Testing performed by: [address] [address] Triglycerides 76 <=149 mg/dL LATA Comment: Interpretive Data Ages < or = 9 years Acceptable: <75 mg/dL Borderline high: 75-99 mg/dL High: >or= 100 mg/dL Ages 10 to 20 years Acceptable: <90 mg/dL Borderline high: 90-129 mg/dL High: >or= 130 mg/dL Ages > or = 20 years Desirable: <150 mg/dL Borderline high: 150-199 mg/dL High: 200-499 mg/dL Very high: >or= 499 mg/dL Literature References: 1. Expert Panel on Integrated Guidelines for Cardiovascular Health and Risk Reduction in Children and Adolescents. Pediatrics 2011;128:S213 2. NCEP Expert Panel. Circulation 2004;110:227 Current Interpretive Data was last revised on 2018. Testing performed by: [address] [address] HDL 48 >=40 mg/dL LATA Comment: Interpretive Data Ages < or = 19 years Acceptable: >45 mg/dL Borderline low: 40-45 mg/dL Low: <40 mg/dL Ages > or = 20 years Desirable: >or= 60 mg/dL Low: <40 mg/dL Literature References: 1. Expert Panel on Integrated Guidelines for Cardiovascular Health and Risk Reduction in Children and Adolescents. Pediatrics 2011;128:S213 2. NCEP Expert Panel. Circulation 2004;110:227 Current Interpretive Data was last revised on 2018. Testing performed by: [address] [address] LDL, calculated 56 <=129 mg/dL LATA IBARRA Comment: Interpretive Data Ages < or = 19 years Acceptable: <110 mg/dL Borderline high: 110-129 mg/dL High: >or= 130 mg/dL Ages > or = 20 years Optimal: <100 mg/dL Near optimal: 100-129 mg/dL Borderline high: 130-159 mg/dL High: >160 mg/dL Calculated using the Cameron LDL-C estimating equation. This equation was implemented on 2024. Prior to this date LDL-C was estimated using the Friedewald equation. Literature References: 1. Expert Panel on Integrated Guidelines for Cardiovascular Health and Risk Reduction in Children and Adolescents. Pediatrics 2011;128:S213 2. NCEP Expert Panel. Circulation 2004;110:227 3. Cameron Pierce et al. DORINDA Cardiol. 2020 January 03;5(5):540-548. doi: 10.1001/jamacardio.2020.0013 Current Interpretive Data was last revised on 2024. Testing performed by: [address] [address] Non-HDL Cholesterol 71 mg/dL LATA IBARRA Comment: Interpretive Data Ages < or = 19 years Acceptable: <120 mg/dL Borderline high: 120-144 mg/dL High: >145 mg/dL Ages > or = 20 years When triglycerides are >200 mg/dL, Non-HDL cholesterol is a secondary target of therapy with treatment goals that are 30 mg/dL greater than the LDL cholesterol target. Literature References: 1. Expert Panel on Integrated Guidelines for Cardiovascular Health and Risk Reduction in Children and Adolescents. Pediatrics 2011;128:S213 2. NCEP Expert Panel. Circulation 2004;110:227 Current Interpretive Data was last revised on 2018. Testing performed by: [address] [address] Chol/HDL ratio 2 LATA Comment:Testing performed by : [address] [address] Blood 09/07/2024 7:55 AM CARDIAC SPECIALIST 09/07/2024 7:59 AM CARDIAC SPECIALIST us Liam Mcbride MD LAB BLOOD ORDERABLES Final Result LATA IBARRA [address] [facility] Department [place] [address] * (ABNORMAL) Comprehensive metabolic panel (09/07/2024 7:55 AM CARDIAC SPECIALIST) Sodium 132(L) 135 - 145 mmol/L Comment:Testing performed by : [address] [address] Potassium, pl 4.7 3.3 - 4.9 mmol/L LATA Comment:Testing performed by : [address], [place]., [address] Chloride 95(L) 97 - 110 mmol/L LATA Comment:Testing performed by : [address] [address] CO2 23 22 - 32 mmol/L LATA Comment:Testing performed by : [address] [address] Anion gap 14 2 - 15 mmol/L LATA Comment:Testing performed by : [address] [address] BUN 19 6 - 25 mg/dL LATA Comment:Testing performed by : [address] [address] Creatinine 1.50(H) 0.60 - 1.10 mg/dL LATA Comment:Testing performed by : [address] [address] Glucose 140 70 - 199 mg/dL [facility] Comment: Interpretive Data Fasting glucose >/= 126 mg/dl is diagnostic for diabetes. Fasting is defined as no caloric intake for at least 8 hours. Fasting glucose between 100 mg/dl to 125 mg/dl is diagnostic of prediabetes. In a patient with classic symptoms of hyperglycemia or hyperglycemic crisis, a random glucose >/= 200 mg/dl is diagnostic for diabetes. In the absence of unequivocal hyperglycemia, results should be confirmed by repeat testing. The classification and Diagnosis of Diabetes Diabetes Care 202; 46: S19-S40. Current interpretive data was last revised 2022. Testing performed by: [address], [place]., [address] Calcium 9.2 8.5 - 10.3 mg/dL LATA Comment:Testing performed by : [facility], [address] [place] [address]., [address] Bilirubin, total 0.5 0.1 - 1.2 mg/dL LATA Comment:Testing performed by : [facility], [address] [place] [address]., [address] Protein, pl 7.3 6.5 - 8.5 g/dL LATA Comment:Testing performed by : [address] [address] Albumin 3.9 3.5 - 5.0 g/dL LATA Comment:Testing performed by : [address] [address] Alk phos 111 40 - 130 Units/L LATA Comment:Testing performed by : [address] [address] ALT 16 7 - 45 Units/L LATA Comment:Testing performed by : [address] [address] AST 27 10 - 45 Units/L LATA Comment:Testing performed by : [address] [address] Blood 09/07/2024 7:55 AM CARDIAC SPECIALIST 09/07/2024 7:59 AM CARDIAC SPECIALIST Liam Mcbride MD LAB BLOOD ORDERABLES Final Result Performing Organization Address City/State/[facility] Phone Number [facility] [address] [facility] Department [place] [address] from Last 3 Months Insurance [facility] Advance Directives For more information, please contact: [phone] * Full Code (Latest Code Status on File) Date Activated Date Inactivated Comments 04/24/2023 9:34 PM 05/02/2023 6:45 PM Care Teams Nuclear Cardiology Technologist Relationship Specialty Start Date End Date Liam Mcbride MD [address] [place] [address] PCP - General 12/03/16 Sourav Crabtree MD [address] [place] [address] Referring Physician General Surgery 08/25/21 Woody Phipps MD [address] [place] [address] Surgeon Colon and Rectal Surgery 08/25/21
--- OUTSIDE RECORDS SUMMARY | 2024-11-27 11:18 | XMS_ITS | Clinical Summary ---
Author Organization [facility] Address [address] [place] [address] Care Team Providers Care Microfilm Clerk Name Role Phone Unavailable Primary Care Provider Unavailabl e Source Comments [facility],non-owned Affiliates and Associated Physician Practices is amultiple site organization consisting of ambulatory clinics and hospital sitesin [place], [place], [place] and [place]. This disclosure is being madepursuant to the Care Everywhere program and may not contain all information available regarding this patient. Last updated 18.[facility] Social History Tobacco Use Types Packs/Day Years Used Date Smoking Tobacco: Never Assessed Sex and Gender Information Value Date Recorded Sex Assigned at Not on file Gender Identity Not on file Sexual Orientation Not on file Plan of Treatment Health Maintenance Due Date Last Done Comments BONE DENSITY TESTING 1937 DTAP/TDAP/TD VACCINES (1 - Tdap) 1956 PNEUMOCOCCAL VACCINE 50+ (1 of 1 - PCV) 1987 ZOSTER VACCINE (1 of 2) 1987 Respiratory Syncytial Virus (RSV) Vaccine Pt: or over 60 yrs (1 - 1-dose 75+ series) 2012 COVID-19 VACCINE (2023-2 5 season) 2024 INFLUENZA VACCINE (#1) 2024 DEPRESSION SCREENING 09/05/2024 HEPATITIS B VACCINE Aged Out No longe r eligible based on patient's age to complete this topic HIB VACCINE Aged Out No longer eligi ble based on patient's age to complete this topic HPV VACCINE Aged Out No longer eligi ble based on patient's age to complete this topic MENINGOCOCCAL (Group B) VACC INE SHARED DECISION-MAKING Aged Out No longer eligibl e based on patient's age to complete this topic MENINGOCOCCAL GROUPS A/C/Y/W VACCINE Aged Out No longer eligible b ased on patient's age to complete this topic
--- OUTSIDE RECORDS SUMMARY | 2024-11-27 11:18 | XMS_ITS | Clinical Summary ---
Author Organization [facility] Care Team Providers Care Reconciliation Accountant Name Role Phone Unavailable Primary Care Provider Unavailabl e Immunizations Immunization Administration Dates Next Due Covid-19, Mrna, Lnp-s, PF, 1 00 mcg/0.5 mL Dose (Moderna) 07/14/2021 Social History Tobacco Use Types Packs/Day Years Used Date Smoking Tobacco: Never Assessed Comments Unknown Sex and Gender Information Value Date Recorded Sex Assigned at Not on file Legal Sex Female 11:37 PM CDT Gender Identity Not on file Sexual Orientation Not on file Plan of Treatment Health Maintenance Due Date Last Done Comments Hepatitis C Virus (HCV) Screening 1935 Zoster Immunization (1 of 2) 1987 Respiratory Syncytial Virus (RSV) Immunization (Adult) (1 - 1-dose 75+ series) 2012 Pneumococcal Immunization (50+ years) (2 of 2 - PPSV23) 11/20/2018 11/20/2017, 05/06/2009 Influenza Immunization (#1) 2024 10/0 02/2021, 05/27/2020, 05/27/2020, Additional history exists SARS-COV-2 Immunization ( season) 2024 04/08/2022, 07/14/2021, 10/24/2020, Additional history exists DTaP/Tdap/Td Immunization Discontinued 11/20/2014 TdaP Immunization Completed 11/20/2014 Hepatitis B Immunization Aged Out No longer eligible based on patient's age to complete this topic Meningococcal Immunization (ACWY) Aged Out No longer eligible based on patient's age to complete this topic Rotavirus Immunization Aged Out No lo nger eligible based on patient's age to complete this topic
--- OUTSIDE RECORDS SUMMARY | 2024-11-27 11:18 | XMS_ITS | Continuity of Care Document ---
Author Organization [facility] Address [address] [place] [address] Phone Care Team Providers Care Tin Cutter Name Role Phone Maicol Marin MD Unavailable Unavailable Medications Medication Instructions Dosage Effective Dates (start - stop) Status Comments Canasa 1,000 mg rectal suppository INSERT 1 SUPPOSITORY RECTALLY EVERY NIGHT AT BEDTIME - Active Apriso 0.375 gram capsule,extended release take 4 capsule by oral route every day in the morning 1500 MG - Active Advance Directives Directive Yes / No Effective Date File Name No Information Encounters Encounter Description Practice Location Reason(s) For Visit Diagnoses Date Provider Providers Copied on Encounter [facility], [address], [place], [place], [id number], tel:[phone] [facility] No Information Tania Milian. [address], [address], [place], [address], [place]. tel: [phone] [facility], [address], [place], [place], [address], tel:[phone] [facility] No Information Tania Milian. [address], [address], [place], [address], [place]. tel: [phone] [facility], [address], [place], [place], [address], tel:[phone] [facility] No Information Misti Bustamante. [address], [place], [address], [place]. tel: [phone] Family History Family Member Type Diagnosis Age At Onset No Information Payers Payer name Insurance type Covered alliance party ID Authormary osorio(s) [employer] [id number] Social History Type Description Quantity Date Captured Comments Sex Female Smoking Status No Information Chief Complaint And Reason For Visit No Information Reason For Referral Reason For Referral No Information History Of Present Illness Encounter Date Complaint History Of Prese nt Illness No Information Functional Status Date Functional Assessmen t No Information Instructions Date Instruction Additional Infor mation No Information Assessments Type Assessment Date No Information Patient Care Teams Name Effective Dates (start - stop) Status Members No Information
--- OUTSIDE RECORDS SUMMARY | 2024-11-27 11:18 | XMS_ITS | Clinical Summary ---
Author Organization [facility] Address [address] [place] [address] Care Team Providers Care Prepared Foods Supervisor Name Role Phone Liam Mcbride MD Primary Care Provider [phone] Allergies Active Allergy Reactions Criticality Noted Date Comments Ciprofloxacin Dizziness 09/16/2022 Penicillins Rash Low 01/10/2019 Sulfa Antibiotics Rash Low 01/10/2019 Medications aspirin EC 81 MG tablet 05/27/2012 Active CONTOUR TEST test strip daily. Test 2 01/08/2019 Active MICROLET LANCETS Misc daily. Test 2 01/08/2019 Acti ve glipiZIDE 10 MG tablet 2 01/18/2019 Active losartan 25 MG tablet Take 1 tablet (25 mg total) by mouth daily. 2 01/01/2019 Active fish oil 1000 MG Cap capsule Take 1 capsule (1,000 mg total) by mouth 2 (two) times daily. Active Calcium Carbonate (TUMS 500 OR) Take 1 tablet by mouth 2 (two) times daily. Active VITAMIN D, CHOLECALCIFEROL , OR Active atorvastatin 40 MG tablet Take 1 tablet (40 mg total) by mouth daily. 05/27/2020 Active gabapentin 300 MG capsule TK 1 C PO QHS 06/24/2020 Active alendronate (FOSAMAX) 70 MG tablet Take 1 tablet (70 mg total) by mouth once a week. 09/25/2024 Active metoprolol succinate ER (TOPROL-XL) 25 MG 24 hr tablet Take 1 tablet (25 mg total) by mouth daily. 09/30/2024 Active cephALEXin (KEFLEX) 500 MG capsule Take 1 capsule (500 mg total) by mouth 2 (two) times daily for 7 days. 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 Chronic kidney disease, stage 4 (severe) ([facility]) 03/28/2012 Hyperkalemia 03/28/2012 Type 2 diabetes mellitus wit hout complication ([facility]) 03/28/2012 Hypertensive chronic kidney disease with stage 1 through stage 4 chronic kidney disease, or unspecified chronic kidney disease 03/28/2012 Encounters Date Type Department Care Team Description 10/22/2024 1:14 PM [facility]ER - 10/22/2024 2:11 PM [facility] Hospital Encounter [facility] [address] [place] [address] Edita Majano DO Urinary Symptoms Discharge Disposition: Home or Self Care (Routine Discharge) 10/22/2024 Travel from Last 3 Months Family History Medical History Relation Comments Asthma Father Heart Disease Father Relation Status Comments Father Mother Social History Tobacco Use Types Packs/Day Years Used Date Smoking Tobacco: Never Passive Smoke Exposure: Never Smokeless Tobacco: Never Tobacco Cessation:Counseling Given: Not Answered Alcohol Use Standard Drinks/Week Comments No 0 (1 standard drink = 0.6 oz pur e alcohol) AUDIT-C Answer Date Recorded Frequency of Alcohol Consumption Never 01/10/2019 Average Number of Drinks Not on file 019 Frequency of Binge Drinking Not on file 04/2019 Comments No Sex and Gender Information Value Date Recorded Sex Assigned at Female 10/22/2024 1:04 PM [facility]ER Legal Sex Female 7:56 PM CDT Gender Identity Not on file Sexual Orientation Not on file Last Filed Vital Signs Vital Sign Reading Time Taken Comments Blood Pressure 119/69 10/22/2024 1:21 PM [facility] Pulse 90 10/22/2024 1:17 PM [facility] Temperature 36.7 C (98 F) 10/22/2024 1:17 PM [facility] Respiratory Rate 16 10/22/2024 1:17 PM [facility] Oxygen Saturation 100% 10/22/2024 1:17 PM [facility] Inhaled Oxygen Concentration - - Weight 64.4 kg (142 lb) 10/22/2024 1:17 PM [facility] Height 153.7 cm (5' 0.5 ) 10/22/2024 1:17 PM [facility] Body Mass Index 27.28 10/22/2024 1:17 PM [facility]ER Plan of Treatment Health Maintenance Due Date Last Done Comments ASCVD LDL 1935 ASCVD Statin 1935 Lipid Panel 1935 Diabetes: Retinopathy Eye Exam 1955 DTaP, Tdap and Td Vaccines (1 - Tdap) 1956 Zoster Vaccines (1 of 2) 1987 Annual Medicare Wellness Visit 2002 RSV Immunization or 60+ Years (1 - 1-dose 75+ series) 2012 Pneumococcal Vaccine: 65+ Years (2 of 2 - PPSV23 or PCV20) 01/15/2018 11/20/2017, 05/06/2009 COVID-19 Vaccine (3 - season) 2024 07/14/2021, 10/03/2020 Influenza Adult (#1) 2024 05/20/2021, 05/27/2020, 06/06/2019 Hemoglobin A1C 03/07/2025 09/07/2024, 08/2 05/2024, 12/23/2023, Additional history exists Meningococcal B Vaccine Aged Out No l onger eligible based on patient's age to complete this topic Meningococcal Vaccine Aged Out No karma ejrson eligible based on patient's age to complete this topic RSV Immunizations Under 20 Months Aged Out No longer eligible based on patient's age to complete this topic Medical Devices Implanted Type Area Bench Lay Out Technician Device Identifier Shelf Expiration Date Model / Serial / Lot Knee Procedures Procedure Name Priority Date/Time Associated Diagnosis Comments CULTURE, GENITAL W/ GRAM STAIN STAT 10/22/2024 1:40 PM [employer] [facility] URINE BACTERIA CULTURE STAT 10/22/2024 1:40 PM [employer] [facility] URINALYSIS AUTO DIP STAT 10/22/2024 1 :40 PM [employer] [facility] [facility] from Last 3 Months Results * (ABNORMAL) CULTURE, GENITAL W/ GRAM STAIN (10/22/2024 1:40 PM [facility]) SPEC DESCRIPTION VAGINAL SPECIMEN 10/22/2024 1:40 PM [employer] [facility] [employer] SPECIAL REQUESTS NO SPECIAL REQUEST 10/22/2024 1:40 PM [facility] [facility] GRAM STAIN RESULT INDETERMINATE FOR BACTERIAL VAGINOSIS 10/23/2024 10:59 AM [employer] GRAM STAIN RESULT NO YEAST SEEN 10/23/2024 10:59 AM [employer] CULTURE RESULT LIGHT GROWTH OF ESCHERICHIA COLI (A) 10/24/2024 9:58 AM [employer] CULTURE RESULT LIGHT GROWTH OF NORMAL FRANCISCO PRESENT 10/24/2024 9:58 AM [facility] VAGINAL STRUCTURE / Unknown 10/22/2024 1:40 PM [employer]ER 10/22/2024 2:04 PM [employer] [facility] Narrative Organism Antibiotic Method Susceptibility Escherichia coli AMPICILLIN STEFFI (VITEK) <=2: Sensitive Escherichia coli AMPICILLIN/SULBACTAM STEFFI (VITEK) <=2: Sensitive Escherichia coli CEFTRIAXONE STEFFI (VITEK) <=1: Sensitive Escherichia coli CEFTAZIDIME STEFFI (VITEK) <=1: Sensitive Escherichia coli CEFAZOLIN STEFFI (VITEK) <=4: Sensitive Escherichia coli ESBL STEFFI (VITEK) NEG: Sensitive Escherichia coli GENTAMICIN STEFFI (VITEK) <=1: Sensitive Escherichia coli LEVOFLOXACIN STEFFI (VITEK) >=8: Resistant Escherichia coli PIPRACIL/TAZO STEFFI (VITEK) <=4: Sensitive Escherichia coli TRIMETH-SULFAMETH. STEFFI (VITEK) <=20: Sensitive us Edita Majano DO MICROBIOLOGY - GENERAL ORDERA BLES Final Result [facility] [address] [place] [address], [place] [phone] [facility] [address] [place] [address], [place] * (ABNORMAL) CULTURE URINE (10/22/2024 1:40 PM [facility]) SPEC DESCRIPTION URINE CLEAN CATCH 10/22/2024 1:40 PM [facility] [facility] [employer] SPECIAL REQUESTS NO SPECIAL REQUEST 10/22/2024 1:40 PM [facility] CULTURE RESULT >100,000 COL/ML ESCHERICHIA COLI (A) 10/24/2024 8:34 AM [facility] URINE SPECIMEN OBTAINED BY CLEAN CATCH PROCEDURE / Unknown 10/22/2024 1:40 PM [facility]ER 10/22/2024 2:02 PM [facility] Narrative Organism Antibiotic Method Susceptibility Escherichia coli AMPICILLIN STEFFI (VITEK) 4: Sensitive Escherichia coli AMPICILLIN/SULBACTAM STEFFI (VITEK) <=2: Sensitive Escherichia coli CEFTRIAXONE STEFFI (VITEK) <=1: Sensitive Escherichia coli CEFTAZIDIME STEFFI (VITEK) <=1: Sensitive Escherichia coli CEFAZOLIN STEFFI (VITEK) <=4: Sensitive Escherichia coli ESBL STEFFI (VITEK) NEG: Sensitive Escherichia coli NITROFURANTOIN STEFFI (VITEK) 128: Resistant Escherichia coli GENTAMICIN STEFFI (VITEK) <=1: Sensitive Escherichia coli LEVOFLOXACIN STEFFI (VITEK) >=8: Resistant Escherichia coli PIPRACIL/TAZO STEFFI (VITEK) <=4: Sensitive Escherichia coli TRIMETH-SULFAMETH. STEFFI (VITEK) <=20: Sensitive Edita Majano DO MICROBIOLOGY - GENERAL ORDERA BLES Final Result [facility] [address] [place] [address], [place] [phone] [facility] [address] [place] [address], [place] * (ABNORMAL) URINALYSIS AUTO DIP (10/22/2024 1:40 PM [facility]) SPECIMEN TYPE URINE CLEAN CATCH 10/22/2024 1:40 PM [facility] [employer] COLOR (U) YELLOW 10/22/2024 1:57 PM [facility] [employer] TRANSPARENCY TURBID 10/22/2024 1:57 PM [employer] [employer] SPECIFIC GRAVITY (U) 1.025 1.001 - 1.030 10/22/2024 1:57 PM [employer] U PH 5.5 5.0 - 9.0 10/22/2024 1:57 PM [employer] LEUKOCYTES (U) LARGE(A) NEGATIVE 10/22/2024 1:57 PM [employer] NITRITES POSITIVE(A) NEGATIVE 10/22/2024 1:57 PM [facility] [facility] PROTEIN RANDOM (U) 100(H) <30 MG/DL 10/22/2024 1:57 PM [facility] [employer] GLUCOSE (U) NEGATIVE NEGATIVE MG/DL 10/22/2024 1:57 PM [facility] KETONES MG/DL (U) NEGATIVE NEGATIVE MG/DL 10/22/2024 1:57 PM [facility] UROBILINOGEN 0.2(A) NEGATIVE MG/DL 10/22/2024 1:57 PM [facility] [employer] BILIRUBIN (U) NEGATIVE NEGATIVE MG/DL 10/22/2024 1:57 PM [facility] BLOOD (U) MODERATE(A) NEGATIVE 10/22/2024 1:57 PM [employer] URINE SPECIMEN OBTAINED BY CLEAN CATCH PROCEDURE / Unknown 10/22/2024 1:40 PM [facility] us Edita Majano DO URINE ORDERABLES Final Result [facility] [place] [address], [place] from Last 3 Months Insurance [employer] Care Teams Prepared Foods Supervisor Relationship Specialty Start Date End Date Liam Mcbride MD [address] [place] [address] PCP - General 11/20/14
--- OUTSIDE RECORDS SUMMARY | 2024-11-27 11:18 | XMS_ITS | Clinical Summary ---
Author Organization [facility] Address [address] [place] [address] Care Team Providers Care Dental Patient Coordinator Name Role Phone Liam Mcbride MD Primary Care Provide r Sourav Crabtree MD Unavailable [phone] Woody Phipsp MD Unavailable [phone] Allergies Active Allergy Reactions Criticality Noted Date [...] by oral route every day 0 0 3 Active glipiZIDE (GLUCOTROL) 10 mg tablet [...] (12/09/2016): OLD MYOCARDIAL INFARCT Coronary arteriosclerosis in [place] artery 01/19 Overview (12/09/2016): CRNRY ATHRSCL NATVE VSSL Hypertension 01/19/2014 Overview (12/11/2016): HYPERTENSION NOS Encounters Date Type Department Care Team Description 11/13/2024 7:[address] [facility] [address] [place] [id number] 09/07/2024 7:35 AM MOBILE SALES ASSISTANT Lab [facility] [address] [place] [address] from Last 3 Months Surgical History Surgery Date Site/Laterality Comments VAGINAL HYSTERECTOMY 09/05/1982 - 09/04/1983 Hysterectomy, vaginal OTHER SURGICAL HISTORY 09/05/2007 - 09/04/2008 Ex Lap, TAC with end Ileostomy, Jesus 09/12 OTHER SURGICAL HISTORY 09/05/2007 - 09/04/2008 Colectomy, ileostomy, Dr. Ventura (perforation) OTHER SURGICAL HISTORY 09/05/2007 - 09/04/2008 Ileostomy & colectomy (inflammed colitis) COLECTOMY Total TOTAL KNEE ARTHROPLASTY 09/05/2014 - 09/04/2015 Bilateral OTHER SURGICAL HISTORY 10/06/2022 ROBOT Asst [place] Fundoplication Medical History Medical History Date Comments Hx Other Medical CAD s/p [place] Hx Other Medical Ulcerative Coli tis 05/12 Diabetes mellitus (HCC) Diabetes Hx Other Medical 2007 Ulcerative Coli tis, Dr. Bernabe Hx Other Medical CKD - 4 (Dr. 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) Coronary artery disease Sleep apnea Family History Medical History Relation Name Comments Diabetes Brother 2 Diabetes mellit us; , 42y, [place] Father Diabetes Mother Diabetes mellit us; Relation Name Status Comments Brother 1 Alive Brother 2 Father Mother Alive Social History Tobacco Use Types Packs/Day Years [...] on file Legal Sex Female 10:00 AM MOBILE SALES ASSISTANT Gender Identity Not on file Sexual Orientation Not on file Obstetrics History Comments 1983 Hysterectomy Last Filed Vital Signs Vital Sign Reading [...] 01/06/2024 11:05 AM CDT Plan of Treatment Health Maintenance Due Date Last Done Comments Depression Screening 1937 Hepatitis B Screening 1955 Zoster Vaccine (1 of 2) 1987 Well Visit 65+ 2002 Pneumococcal vaccine 65+ (2 of 2 - PPSV23) 11/20/2018 11/20/2017, 05/06/2009 Fall Risk Assessment 05/02/2024 05/02/2023 Covid-19 Vaccine (4 - 2023-2 5 season) 2024 07/14/2021, 10/24/2020, 09/26/2020 Influenza Vaccine (#1) 2024 , 05/20/2021, 05/27/2020, Additional history exists DTaP/Tdap/Td Vaccine (2 - Td or Tdap) 11/20/2024 11/20/2014 Procedures Procedure Name Priority Date/Time Associated Diagnosis Comments PROTEIN / CREATININE RATIO, URINE, RANDOM Routine 11/13/2024 7:39 AM CDT EGFR Routine 11/13/2024 7:28 AM CDT RENAL FUNCTION PANEL Routine 11/13/2024 7:28 AM CDT CBC WITHOUT DIFFERENTIAL Routine 11/13/2024 7:28 AM CDT PTH Routine 11/13/2024 7:28 AM CDT ALBUMIN CREATININE RATIO, URINE Routine 09/07/2024 8:31 AM MOBILE SALES ASSISTANT EGFR Routine 09/07/2024 7:55 AM MOBILE SALES ASSISTANT LIPID PANEL Routine 09/07/2024 7:55 AM MOBILE SALES ASSISTANT COMPREHENSIVE METABOLIC PANEL Routine 09/07/2024 7:55 AM MOBILE SALES ASSISTANT HEMOGLOBIN A1C Routine 09/07/2024 7:55 AM MOBILE SALES ASSISTANT VITAMIN D 25 HYDROXY Routine 09/07/2024 7:55 AM MOBILE SALES ASSISTANT from Last 3 Months Results * (ABNORMAL) Protein / creatinine ratio, urine, random (11/13/2024 7:39 AM CDT) Protein, ur, quant 60.0 mg/dL Comment: Interpretive Data No reference range established. Current interpretive data was last revised 2019. Testing performed by: [address] [address] Creatinine Ur 98.1 mg/dL [facility] Comment: Interpretive Data No reference range established. Current interpretive data was last revised 2019. Testing performed by: [address] [address] Protein/creatinin e ratio 611.6(H) 0.0 - 180.0 mg/g CR [facility] Comment:Testing performed by : [address] [address] Urine 11/13/2024 7:39 AM CDT 11/13/2024 9:15 AM CDT us Tony Winston MD LAB URINE ORDERABLES Final R esult [facility] [address] Department [place] [address] * (ABNORMAL) eGFR (11/13/2024 7:28 AM CDT) [...] was last reviewed 2021. Testing performed by: [address] [address] Blood 11/13/2024 7:28 AM CDT 11/13/2024 7:47 AM CDT us Tony Winston MD LAB BLOOD ORDERABLES Final R esult [facility] [address] Department [place] [address] * (ABNORMAL) CBC without differential (11/13/2024 7:28 AM CDT) Pathologist [facility] WBC 8.7 3.8 - 9.9 K/cumm Comment:Testing performed by : [address] [address] Hgb 10.5(L) 11.9 - 15.5 g/dL [facility] Comment:Testing performed by : [address] [address] Hct 33.0(L) 35.6 - 45.5 % [facility] Comment:Testing performed by : [address] [address] Plt 349 150 - 400 K/cumm [facility] Comment:Testing performed by : [address] [address] MPV 9.2 9.1 - 12.3 fL [facility] Comment:Testing performed by : [address] [address] RBC 3.74(L) 3.90 - 5.20 M/cumm [facility] Comment:Testing performed by : [address] [address] MCV 88.2 81.3 - 96.4 fL [facility] Comment:Testing performed by : [address] [address] MCH 28.1 27.1 - 33.3 pg [facility] Comment:Testing performed by : [address] [address] MCHC 31.8(L) 32.3 - 35.7 g/dL [facility] Comment:Testing performed by : [address], [address] RDW CV 13.4 11.1 - 14.9 % [facility] Comment:Testing performed by : [address], [address] RDW SD 43.3 35.7 - 48.1 fL [facility] Comment:Testing performed by : [address], [address] NRBC abs 0.00 0.00 - 0.01 K/cumm [facility] Comment:Testing performed by : [address] [address] Blood 11/13/2024 7:28 AM CDT 11/13/2024 7:47 AM CDT us Tony Winston MD LAB BLOOD ORDERABLES Final R esult [facility] [address] Department [place] [address] * PTH (11/13/2024 7:28 AM CDT) Pathologist [facility] PTH 30 15 - 65 pg/mL Comment:Testing performed by : [address] [address] Blood 11/13/2024 7:28 AM CDT 11/13/2024 7:47 AM CDT Tony Winston MD LAB BLOOD ORDERABLES Final R esult [facility] [address] Department [place] [address] * (ABNORMAL) Renal function panel (11/13/2024 7:28 AM CDT) Pathologist [facility] Sodium 133(L) 135 - 145 mmol/L Comment:Testing performed by : [address] [address] Potassium, pl 4.5 3.3 - 4.9 mmol/L [facility] Comment:Testing performed by : [address] [address] Chloride 98 97 - 110 mmol/L [facility] Comment:Testing performed by : [address] [address] CO2 25 22 - 32 mmol/L [facility] Comment:Testing performed by : [address] [address] Anion gap 10 2 - 15 mmol/L [facility] Comment:Testing performed by : [address] [address] BUN 17 6 - 25 mg/dL [facility] Comment:Testing performed by : [address] [address] Creatinine 1.40(H) 0.60 - 1.10 mg/dL [facility] Comment:Testing performed by : [address] [address] Glucose 141 70 - 199 mg/dL [facility] [...] classification and Diagnosis of Diabetes Diabetes Care 2021; 46: S19-S40. Current interpretive data was last revised 2022. Testing performed by: [address] [address] Calcium 10.3 8.5 - 10.3 mg/dL [facility] Comment:Testing performed by : [address] [address] Phosphorus, pl 3.9 2.3 - 4.5 mg/dL [facility] Comment:Testing performed by : [address] [address] Albumin 4.0 3.5 - 5.0 g/dL [facility] Comment:Testing performed by : [address] [address] Blood 11/13/2024 7:28 AM CDT 11/13/2024 7:47 AM CDT Tony Winston MD LAB BLOOD ORDERABLES Final R esult Performing Organization Address City/State/[facility] Co de Phone Number [facility] [address] Department [place] [address] * (ABNORMAL) Albumin Creatinine Ratio, Urine (09/07/2024 8:31 AM MOBILE SALES ASSISTANT) Albumin Ur 24.3 mg/L Comment: Interpretive Data No reference range established. Current interpretive data was last revised 2019. Testing performed by: [address] [address] Creatinine Ur 63.9 mg/dL [facility] Comment: Interpretive Data No reference range established. Current interpretive data was last revised 2019. Testing performed by: [address] [address] Albumin Creatinine Ratio, Ur 38(H) 1 - 29 mg/g [facility] Comment:Testing performed by : [address] [address] Urine 09/07/2024 8:31 AM MOBILE SALES ASSISTANT 09/07/2024 8:52 AM MOBILE SALES ASSISTANT Liam Mcbride MD LAB URINE ORDERABLES Final Result [facility] [address] [place] [address] * (ABNORMAL) eGFR (09/07/2024 7:55 AM MOBILE SALES ASSISTANT) eGFR 34(L) >=60 mL/min/1. 73 m2 Comment: [...] was last reviewed 2021. Testing performed by: [facility], [address] [place] [address]., [address] Blood 09/07/2024 7:55 AM MOBILE SALES ASSISTANT 09/07/2024 7:59 AM MOBILE SALES ASSISTANT Liam Mcbride MD LAB BLOOD ORDERABLES Final Result [place] [id number] [place] [address] * Vitamin D 25 hydroxy (09/07/2024 7:55 AM MOBILE SALES ASSISTANT) [facility] Vitamin D 25-OH 77.0 30.0 - 80.0 ng/mL Blood 09/07/2024 7:55 AM MOBILE SALES ASSISTANT 09/07/2024 10:36 AM MOBILE SALES ASSISTANT Liam Mcbride MD LAB BLOOD ORDERABLES Final Result Performing Organization Address [facility] Co de Phone Number [address] [employer] [place] [place] [address] * (ABNORMAL) Hemoglobin A1c (09/07/2024 7:55 AM MOBILE SALES ASSISTANT) [facility] Hgb A1C 8.2(H) 4.0 - 5.6 % Comment:Testing performed by : [address] [address] Estimated Average Glucose 189 mg/dL [facility] Comment: The ADA recommends reporting an estimated Average Glucose (eAG) with all Hemoglobin A1c results using the equation derived from a study of 507 normal and diabetic adults. Minority populations were underrepresented and children were not included. (Diabetes Care 31:1058-9161, 2008). The eAG is not equivalent to a fasting glucose. Testing performed by: [facility], [address] [place] [address]., [address] Blood 09/07/2024 7:55 AM MOBILE SALES ASSISTANT 09/07/2024 7:59 AM MOBILE SALES ASSISTANT Liam Mcbride MD LAB BLOOD ORDERABLES Final Result Performing Organization Address [facility] Co de Phone Number [place] [phone] [facility] [employer] [place] [place] [address] * Lipid panel (09/07/2024 7:55 AM MOBILE SALES ASSISTANT) [facility] Cholesterol 119 30 - 199 mg/dL Comment: [...] last revised on 2018. Testing performed by: [address] [address] Triglycerides 76 <=149 mg/dL [facility] Comment: Interpretive [...] last revised on 2018. Testing performed by: [address] [address] HDL 48 >=40 mg/dL [facility] Comment: Interpretive [...] last revised on 2018. Testing performed by: [address] [address] LDL, calculated 56 <=129 mg/dL [facility] Comment: Interpretive Data Ages < or = [...] last revised on 2024. Testing performed by: [address] [address] Non-HDL Cholesterol 71 mg/dL [facility] Comment: [...] last revised on 2018. Testing performed by: [address] [address] Chol/HDL ratio 2 [facility] Comment:Testing performed by : [address] [address] Blood 09/07/2024 7:55 AM MOBILE SALES ASSISTANT 09/07/2024 7:59 AM MOBILE SALES ASSISTANT us Liam Mcbride MD LAB BLOOD ORDERABLES Final Result [facility] [address] Department of Laboratories [place], [place] [id number] * (ABNORMAL) Comprehensive metabolic panel (09/07/2024 7:55 AM MOBILE SALES ASSISTANT) Sodium 132(L) 135 - 145 mmol/L Comment:Testing performed by : [address] [address] Potassium, pl 4.7 3.3 - 4.9 mmol/L [facility] Comment:Testing performed by : [address], [place]., [address] Chloride 95(L) 97 - 110 mmol/L [facility] Comment:Testing performed by : [address], [place]., [address] CO2 23 22 - 32 mmol/L [facility] Comment:Testing performed by : [address], [place]., [address] Anion gap 14 2 - 15 mmol/L [facility] Comment:Testing performed by : [address], [place]., [address] BUN 19 6 - 25 mg/dL [facility] Comment:Testing performed by : [address], [place]., [address] Creatinine 1.50(H) 0.60 - 1.10 mg/dL [facility] Comment:Testing performed by : [address] [address] Glucose 140 70 - 199 mg/dL [facility] Comment: Interpretive Data Fasting glucose >/= 126 [...] was last revised 2022. Testing performed by: [address] [address] Calcium 9.2 8.5 - 10.3 mg/dL [facility] Comment:Testing performed by : [address] [address] Bilirubin, total 0.5 0.1 - 1.2 mg/dL [facility] Comment:Testing performed by : [facility], [address] [place] [address]., [address] Protein, pl 7.3 6.5 - 8.5 g/dL [facility] Comment:Testing performed by : [facility], [address] [place] [address], [place]., [address] Albumin 3.9 3.5 - 5.0 g/dL [facility] Comment:Testing performed by : [address] [address] Alk phos 111 40 - 130 Units/L [facility] Comment:Testing performed by : [address], [place]., [address] ALT 16 7 - 45 Units/L [facility] Comment:Testing performed by : [address] [address] AST 27 10 - 45 Units/L [facility] Comment:Testing performed by : [address] [address] Blood 09/07/2024 7:55 AM MOBILE SALES ASSISTANT 09/07/2024 7:59 AM MOBILE SALES ASSISTANT Liam Mcbride MD LAB BLOOD ORDERABLES Final Result [facility] [address] Department [place] [address] from Last 3 Months Insurance [facility] Member Subscriber Plan / Payer ( fective 2020-Present) Name:Deysi Kaplan Relation to Subscriber:Self Name:Deysi Kaplan Payer ID:[id number] (NAIC) Type:MEDICARE RISK OTHER Address: [address] [place] [id number] [facility] Advance Directives For more information, please contact: [phone] * Full Code (Latest Code Status on File) Date Activated Date Inactivated Comments 04/24/2023 9:34 PM 05/02/2023 6:45 PM Care Teams Dental Patient Coordinator Relationship Specialty Start Date End Date Liam Mcbride MD [address] [place] [address] PCP - General 12/03/16 Sourav Crabtree MD [address] [place] [address] Referring Physician General Surgery 08/25/21 Woody Phipps MD [address] [place] [address] Surgeon Colon and Rectal Surgery 08/25/21
--- OUTSIDE RECORDS SUMMARY | 2024-11-27 11:18 | XMS_ITS | Encounter Summary ---
Author Organization [facility] Address [address] [place] [address] Care Team Providers Care Extractions Technician Name Role Phone Liam Mcbride MD Primary Care Provide r Liam Mcbride MD Primary Care Provide r Sourav Crabtree MD Unavailable [phone] Woody Phipps MD Unavailable Encounter Details Date Type Department Care Team (Late st Contact Info) Description 11/23/2016 Orders Only [facility] ProviderOmar MD [address] [place] [address] Social History Tobacco Use Types Packs/Day Years Used Date Smoking Tobacco: Never Assessed Alcohol Use Standard Drinks/Week Comments No 0 (1 standard drink = 0.6 oz pur e alcohol) Comments Unknown Sex and Gender Information Value Date Recorded Sex Assigned at Not on file Legal Sex Female 10:00 AM [employer] Gender Identity Not on file Sexual Orientation Not on file documented as of this encounter Plan of Treatment Not on file documented as of this encounter Procedures Procedure Name Priority Date/Time Associated Diagnosis Comments CARDIOLOGY REPORT 11/23/2016 documented in this encounter Results * CARDIOLOGY REPORT (11/23/2016) Anatomical Region Laterality Modality Other Narrative 11/23/2016 Ordered by an unspecified provider. Historical Provider [facility] Final Result documented in this encounter Visit Diagnoses Not on filedocumented in this encounter Care Teams Extractions Technician Relationship Specialty Start Date End Date Liam Mcbride MD [address] [place] [address] PCP - General 12/03/16 Liam Mcbride MD [address] [place] [address] PCP - General 01/21/09 12/02/16 Sourav Crabtree MD [address] [place] [address] Referring Physician General Surgery 08/25/21 Woody Phipps MD [address] [place] [address] Surgeon Colon and Rectal Surgery 08/25/21 documented as of this encounter
--- OUTSIDE RECORDS SUMMARY | 2024-11-27 11:18 | XMS_ITS | Clinical Summary ---
Author Organization [facility] Address [address] [address] Phone Care Team Providers Care Inspector [employer] Name Role Phone Liam Mcbride MD Primary Care Provider [phone] Allergies Active Allergy Reactions Criticality Noted Date Comments Lisinopril Other (see comments) 04/23/2019 Reaction: Hyperkalemia?, Penicillins Rash Medium 04/23/2019 Sulfa Antibiotics 04/23/2019 Medications Medication Sig Dispensed Refills Start Date End Date Status omega-3 (FISH OIL) 1000 MG capsule 2 bid 05/27/2012 Active aspirin (ASPIR-LOW) 81 MG EC tablet 05/27/2012 Active gabapentin (NEURONTIN) 100 MG capsule 1 qhs 0 12/24/2015 Active ergocalciferol (VITAMIN D2) 36847 units capsule TAKE 1 CAPSULE BY MOUTH EVERY WEEK 4 05/12/2014 Active gabapentin (NEURONTIN) 300 MG capsule 05/27/2012 Active mesalamine (CANASA) 1000 MG suppository 1 TIW 0 05/24/2016 Activ e losartan (COZAAR) 25 MG tablet TK 1 T PO QD 09/23/2019 Active glipiZIDE (GLUCOTROL) 10 MG tablet TK 1 T PO QAM AND 1/2 T QAFT 06/09/2020 Active atorvastatin (LIPITOR) 40 MG tablet TK 1 T PO D 05/27/2020 Active calcium carbonate (OS-REJI) 1250 (500 Ca) MG chewable tablet Chew 1 tablet 1 (one) time each day With food Active Contour Test test strip TEST BLOOD SUGARS ONCE DAILY 09/07/2021 Active Lancets Ultra Thin 30G misc 1 (one) time each day for testing as directed 06/17/2021 Active Rybelsus 3 MG tablet Take 1 tablet by mouth 1 (one) time each day 03/11/2022 Active Active Problems Problem Noted Date Diagnosed Date Hyponatremia 09/23/2021 Hyperlipidemia 10/25/2018 Disease type AND/OR category unknown 03/19/2014 Overview (04/23/2019): STATUS-POST PTCA Type 2 diabetes mellitus wit h diabetic chronic kidney disease 03/28/2012 Chronic kidney disease, stage 4 (severe) 012 Hypertensive chronic kidney disease with stage 1 through stage 4 chronic kidney disease, or unspecified chronic kidney disease 03/28/2012 Hyperkalemia 03/28/2012 Atherosclerotic heart diseas e of [place] coronary artery without angina pectoris 03/28/2012 Immunizations Name Administration Dates Next Due Influenza TIV (IM) 05/20/2021,05/27/2020, 019 Moderna Sars-cov-2 Vaccination 10/03/2020 Pneumococcal Conjugate 05/06/2009 Family History Medical History Relation Comments Coronary arteriosclerosis Father Relation Status Comments Father Social History Tobacco Use Types Packs/Day Years Used Date Smoking Tobacco: Never Smokeless Tobacco: Never Alcohol Use Standard Drinks/Week Comments Yes 0 (1 standard drink = 0.6 oz pur e alcohol) Sex and Gender Information Value Date Recorded Sex Assigned at Not on file Gender Identity Not on file Sexual Orientation Not on file Last Filed Vital Signs Vital Sign Reading Time Taken Comments Blood Pressure 118/70 03/24/2022 10:01 AM CDT Pulse 72 03/24/2022 10:01 AM CDT Temperature 36.1 C (96.9 F) 03/24/2022 10:01 AM CDT Respiratory Rate - - Oxygen Saturation - - Inhaled Oxygen Concentration - - Weight 65.3 kg (144 lb) 03/24/2022 10:01 AM CDT Height 157.5 cm (5' 2 ) 03/24/2022 10:01 AM CDT Body Mass Index 26.34 03/24/2022 10:01 AM CDT Plan of Treatment Health Maintenance Due Date Last Done Comments Pneumococcal PPSV23/PCV13 65 + Years / Low and Medium Risk (1 of 4 - PCV) 2002 COVID-19 Vaccine (3 - season) 05/06/202405/2021, 10/03/2020 Influenza Vaccine (#1) 2024 , 05/27/2020, 06/06/2019 Care Teams Inspector [employer] Relationship Specialty Start Date End Date Liam Mcbride MD [address] [facility] [address] [place] [address] PCP - General Internal Medicine 04/23/19
== END 2024-11-27 09:53 | disposition home or self-care (01) ==
LOC: ANHLAB 09:53
PROVIDERS: PCP Emergency Medicine; Visit Provider Internal Medicine Nephrology
DX: R82.81 Pyuria (principal); R30.0 Dysuria
CPT/HCPCS: 81001; 87086; 87186